=== PATIENT | female | born 1940 | race Caucasian/White ===

== ENCOUNTER 2016-12-17 17:34 | Observation (INO) | payer OTHER ==
--- NOTE | ~2016-12-17 | HP ---
History And Physical [place] [id number] [facility] [place]. [address] NAME: JOAQUIN PFEIFFER : 38 STATUS : ADM Juan PAT#: [id number] AGE: 76 ADM/REG DATE : 12/17/16 MR#: [id number] REPORT SERV DATE: 12/18/16 DICTATED BY: DON SCHAEFER DATE: 12/18/16 REPORT STATUS : Draft TRANSCRIBED BY: MODMai DATE: 12/18/16 DATE OF ADMISSION: 12/17/2016 [facility] TIGER MACHINE OPERATOR: Tg Ingram M.D. CHIEF COMPLAINT: Referred by PCP for AFib with RVR. HISTORY OF PRESENT ILLNESS: This is a very pleasant, 76-year-old, white female who is a patient of Dr. Ingram. 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 She presented to her primary care provider's office yesterday because over the weekend she was pushing a heavy cart at [facility] and developed what she felt was a muscle in her shoulder pulled. She did also note bilateral posterior neck and between the shoulder blades and costochondral areas that were uncomfortable on Saturday. She denied any palpitations or shortness of breath. EKG at the primary care provider's office showed atrial fibrillation with RVR with a heart rate of 150 while there and therefore, they referred her to the emergency department for new onset paroxysmal atrial fibrillation and atypical chest pain. Currently, she is rate controlled on a diltiazem drip, and she denies any shortness of breath, palpitations or chest pain. She feels them up on her shoulder, feels improved at this time. She has no complaints at this time, and has been n.p.o. since midnight. PAST MEDICAL HISTORY: 1. Hyperlipidemia. 2. Noted frequent PVCs with 2000 couplets and 800 bigeminy runs that were asymptomatic on a Holter 04/29/2015. No V-tach. No A-Fib, just four short runs of SVT that were all asymptomatic. 3. Diabetes mellitus type 2. 4. History of Guillain-Carbonado with residual weakness using a rolling walker. PAST SURGICAL HISTORY: Hysterectomy. SOCIAL HISTORY: She is . She denies any tobacco, alcohol or illicit drug use. She does report using a rolling walker outside the home and occasionally in the home along with a cane. She denies any formal exercise program secondary to Guillain-Carbonado. FAMILY HISTORY: Noncontributory. REVIEW OF SYSTEMS: She does not recall having a recent echocardiogram. She denies any shortness of breath, palpitations or chest pain with exertion. As above per HPI, all other systems reviewed and negative. ALLERGIES: CODEINE, REACTION NAUSEA AND VOMITING. TALWIN, REACTION LOSS OF MUSCLE History And Physical [address] [address] NAME: JOAQUIN PFEIFFER : 38 STATUS : ADM Juan PAT#: [id number] AGE: 76 ADM/REG DATE : 12/17/16 MR#: [id number] REPORT SERV DATE: 12/18/16 DICTATED BY: DON SCHAEFER DATE: 12/18/16 REPORT STATUS : Draft TRANSCRIBED BY: JOSE DATE: 12/18/16 USE/WEAKNESS. DECONAMINE, LOSS OF MUSCLE USE/WEAKNESS. HOME MEDICATIONS: List reviewed and is as follows: 1. Elavil 25 mg p.o. at bedtime. 2. Atorvastatin 40 mg p.o. at bedtime. 3. Vitamin D 1000 units p.o. daily. 4. Coenzyme Q10 100 mg p.o. with supper. 5. Gabapentin 300 mg p.o. three times daily. 6. Amaryl 2 mg p.o. three times daily. 7. Glucosamine/D3/Boswellia kayla 1 tablet p.o. daily. 8. Lisinopril 5 mg p.o. with supper. 9. Magnesium oxide 400 mg p.o. daily. 10.Metformin 850 mg p.o. three times daily. 11.[place]-3 fatty acid 2000 mg p.o. with supper. 12.Blue-Emu 1 application topically daily p.r.n. muscle pain. PHYSICAL EXAMINATION: VITAL SIGNS: Oxygen saturation 93% on room air, weight 79.379 kg, temperature 98.3, pulse 82, respiratory rate 18, blood pressure 111/67. GENERAL: Well developed, well nourished. In no apparent distress. HEENT: Head normocephalic. No xanthelasma. Sclera clear, anicteric. Moist mucous membranes without pallor. No lymphadenopathy. No deficits noted. NECK: Trachea midline. Supple. No thyromegaly, JVD, or bruits. RESPIRATORY: Unlabored respirations. Breath sounds clear bilaterally to posterior auscultation, upper lobes with faint crackles bilaterally and at the bases. No wheezes or rhonchi. CARDIOVASCULAR: Irregularly irregular. No murmur, rub, or gallop appreciated. No chest wall tenderness to palpation. ABDOMEN: Soft, nontender, and nondistended. Active bowel sounds auscultated x4 quadrants. No organomegaly and no masses. No aortic bruit. EXTREMITIES: DP/PT and radial pulses 2+ bilaterally. No clubbing, cyanosis, or edema. SKIN: Warm, dry, intact. No rash. Normal turgor. MUSCULOSKELETAL: Moves all extremities in bed without difficulty. NEURO/PSYCH: Alert and oriented x3 with no acute distress. Affect appropriate to current situation. LABORATORY DATA: BMP: Sodium 140, potassium 4, creatinine 0.76, glucose elevated at 197. Subsequent POC checks 205 and 235. Magnesium 1.7, after repletion 1.9. CBC: White blood cell count 8.9, hemoglobin 12.4, hematocrit 37.4, platelets 224. Initial INR 1.2, after initiation of Eliquis 1.9. Troponin less than 0.02 x2. BNP was mildly abnormal at 317.6. TSH normal at 1.080 and free T4 is also normal at 1.29. LFTs were also unremarkable. IMAGING: Chest x-ray, venous congestion with interstitial prominence, most compatible with edema. Small bilateral pleural effusions noted. Also bibasilar atelectasis noted. EKG is personally interpreted. First EKG from primary care provider's office revealed either atrial fibrillation with RVR 150 or A-flutter at 150. Subsequent EKGs performed at [facility] x2 revealed paroxysmal atrial fibrillation that is rate controlled. Telemetry, History And Physical [place] [address] [facility] [place] [place]. [address] NAME: JOAQUIN PFEIFFER : 38 STATUS : ADM Juan PAT#: [id number] AGE: 76 ADM/REG DATE : 12/17/16 MR#: [id number] REPORT SERV DATE: 12/18/16 DICTATED BY: DON SCHAEFER DATE: 12/18/16 REPORT STATUS : Draft TRANSCRIBED BY: MODMai DATE: 12/18/16 atrial fibrillation, rate 80s. This is on a Cardizem drip. ASSESSMENT AND PLAN: 1. New onset paroxysmal atrial fibrillation. She is currently rate controlled on a Cardizem drip, and we will continue that at this time. We will plan a CASSANDRA cardioversion today. Risks and benefits of CASSANDRA cardioversion were discussed with the patient who has been on Eliquis that was initiated in the emergency department. She does wish to proceed at this time. She will be kept n.p.o. for this procedure. Timing of procedure is pending but anticipate it will be performed today. This has been reviewed with rounding breastfeeding educator for AFib Ops Unit, Dr. Emmanuel Roper. Note CHADS2- VASc score is a 5 given hypertension, age, diabetes, and gender. She again has been initiated on Eliquis 5 mg p.o. b.i.d. and this will be continued upon discharge. I will check an echocardiogram to evaluate for any valvular heart disease as she has not recently had an echocardiogram per patient report. Post CASSANDRA cardioversion, she will be discharged to home on Eliquis, and she will follow up with her breastfeeding educator, Dr. Ingrma in three to four weeks. All questions were answered. 2. Hyperlipidemia. We will continue her home statin. 3. Hypertension. This is well controlled on lisinopril and I will continue that medication. 4. Diabetes mellitus 2. She will be continued on sliding scale insulin while here in the hospital, and she will resume p.o. medications upon discharge. She is to follow up with her primary care provider. 5. Fluid volume overload. I suspect that this is in the setting of atrial fibrillation with rapid ventricular rate. She is currently not hypoxic and is on room air at this time with no ankle edema and minimal crackles, bilateral bases. I will provide her 1 more dosage of IV Bumex. Otherwise, she will be sent home without diuretics as again I suspect that this was secondary to the rapid ventricular response. 6. Atypical chest pain. The patient denies this at this present time and denies having atypical chest pain but reports only shoulder pain that she reports is secondary to a pulled muscle pushing a cart over the weekend. She did have 2 negative troponins and EKG did not reveal ischemia. 7. Followup with primary care provider and followup with Dr. Ingram. KL/MODL Don Schaefer NP / [id number] CC: Lauren Elizalde, MSN, CONFIGURATION MANAGEMENT SPECIALIST-BC Tg Ingram M.D. Emmanuel Roper M.D.
--- NOTE | ~2016-12-17 | TEE ---
Transesophageal Echocardiogram [facility] [address] [place]. [address] NAME: JOAQUIN PFEIFFER : 38 STATUS : ADM Juan PAT#: [id number] AGE: 76 ADM/REG DATE : 12/17/16 MR#: [id number] REPORT SERV DATE: 12/18/16 DICTATED BY: LG MYERS DATE: 12/18/16 REPORT STATUS : Draft TRANSCRIBED BY: MODL DATE: 12/18/16 INDICATION: This is a 76-year-old woman with atrial fibrillation. PROCEDURE: After questions were answered and consents were signed, the patient was sedated with propofol per Anesthesia. The probe was placed in the mid esophagus, and images were obtained without difficulty. At the conclusion of the procedure, the probe was withdrawn, and the patient was to awaken in the short-stay unit without difficulty. 2D INTERPRETATION: The left ventricular function is mild to moderately decreased globally. The mitral valve opened adequately. No prolapse was noted. The left atrium was moderately enlarged. There was spontaneous echo contrast noted in the left atrium and with dense contrast in the left atrial appendage with almost sludging type of morphology, there was a concern for clot in the left atrial appendage. The interatrial septum was intact. The right atrium was normal. Tricuspid valve was grossly normal. Right ventricle grossly normal. No significant atherosclerotic plaquing was noted in the descending aorta or the aortic arch. No significant pericardial effusion. COLOR FLOW: Mild to moderate mitral regurgitation with no significant aortic insufficiency and moderate mitral regurgitation. DOPPLER: Doppler flow velocities in the left atrial appendage were less than 40 cm/sec. CONCLUSION: 1. MILD TO MODERATELY DECREASED LEFT VENTRICULAR SYSTOLIC FUNCTION WITH VISUAL ESTIMATION OF LVEF 35%-40%. 2. SIGNIFICANT LEFT ATRIAL ENLARGEMENT WITH SLOW FLOW AND PROBABLE LEFT ATRIAL APPENDAGE THROMBUS. 3. MODERATE MITRAL AND TRICUSPID REGURGITATION. WO/MODL Lg Myers M.D., Ph.D, F.A.C.C. / [id number] CC: Simon Rivera M.D.
[2016-12-17 16:47] LABS: BASOPHILS 0.2 %; BASOPHILS ABSOLUTE 0.02 10/3/uL (0.0-0.16); EOSINOPHILS 0.1 %; EOSINOPHILS ABSOLUTE 0.01 10/3/uL (0.0-0.53); HEMATOCRIT 37.3 % (36.0-48.0); HEMOGLOBIN 12.4 g/dL (12.0-16.0); IMMATURE GRANULOCYTES 0.1 %; IMMATURE GRANULOCYTES ABSOLUTE 0.01 10/3/uL (0.0-0.11); LYMPHOCYTES 14.5 %; LYMPHOCYTES ABSOLUTE 1.29 10/3/uL (0.67-4.30); MEAN CORPUS HGB CONC 33.2 g/dL (32.0-36.0); MEAN CORPUSCULAR HEMOGLOB 30.7 pg (26.0-34.0); MEAN CORPUSCULAR VOLUME 92.3 fL (80-100); MEAN PLATELET VOLUME 9.6 fL (9.2-13.0); MONOCYTES 14.7 %; MONOCYTES ABSOLUTE 1.31 10/3/uL (0.21-1.20); NEUTROPHILS 70.4 %; NEUTROPHILS ABSOLUTE 6.27 10/3/uL (2.02-8.40); PLATELET COUNT 224 10/3/uL (150-400); RBC DISTRIBUTION WIDTH 14.9 % (12.0-16.0); RED CELL COUNT 4.04 10/6/uL (4.0-5.6); WHITE BLOOD CELLS 8.9 10/3/uL (4.5-10.5)
[2016-12-17 16:50] LABS: MANUAL DIFF NO %
[2016-12-17 16:56] LABS: INTERNATIONAL NORMAL RATI 1.2 UNITS (-); PARTIAL THROMBO TIME 29.3 SEC (22.5-37.2); PROTIME (NOT ORD) 15.4 SEC (12.0-14.5)
[2016-12-17 17:02] LABS: CALCIUM, SERUM 9.3 MG/DL (8.5-10.4); CHEST PAIN PROFILE TAT 0 Hrs 21 Mins; CHLORIDE, SERUM 109 MMOL/L (96-112); CO2 (CARBON DIOXIDE) 25 MMOL/L (24-34); CREATININE 0.76 MG/DL (0.55-1.02); GFR AFRICAN AMERICAN 87 ML/MIN (>=60); GFR NON AFRICAN AMERICAN 75 ML/MIN (>=60); GLUCOSE, SERUM 197 MG/DL (60-99); SODIUM, SERUM 140 MMOL/L (135-148); TROPONIN I <0.02 NG/ML (<0.05)
[2016-12-17 17:03] LABS: BUN (BLOOD UREA NITROGEN) 15 MG/DL (6-23)
[2016-12-17] MEDS ORDERED: MAGOX4 PO (18:49)
[2016-12-17] MEDS ORDERED: LIPITOR40 PO (18:49)
[2016-12-17] MEDS ORDERED: AMARYL2 PO (18:49)
[2016-12-17] MEDS ORDERED: BLU EMU TOP (18:50)
[2016-12-17] MEDS ORDERED: AMIT25 PO (18:50)
[2016-12-17] MEDS ORDERED: GLUCPH8 PO (18:50)
[2016-12-17] MEDS ORDERED: NEUR300 PO (18:51)
[2016-12-17] MEDS ORDERED: CO Q-10100 MG PO (18:51)
[2016-12-17] MEDS ORDERED: FISH-EPA1000 MG PO (18:51)
[2016-12-17] MEDS ORDERED: PRIN5 PO (18:51)
[2016-12-17] MEDS ORDERED: VITAMIN D1000 UNI1 PO (18:52)
[2016-12-17] MEDS ORDERED: OSTEO BI-FLEX1 EACH PO (18:52)
[2016-12-17 20:11] LABS: ALBUMIN 3.6 G/DL (3.5-5.0); ALKALINE PHOSPHATASE 72 U/L (45-117); DIRECT BILIRUBIN 0.2 MG/DL (0.0-0.4); FREE T4 1.29 NG/DL (0.76-1.46); INDIRECT BILIRUBIN(NOT ORDER) 0.6 MG/DL (0.1-0.9); SGOT(AST) 17 U/L (5-40); SGPT(ALT) 19 U/L (5-65); TOTAL BILIRUBIN 0.8 MG/DL (0-1.2); TOTAL PROTEIN 7.5 G/DL (6.0-8.5)
[2016-12-18 05:40] LABS: INTERNATIONAL NORMAL RATI 1.9 UNITS (-); PARTIAL THROMBO TIME 41.1 SEC (22.5-37.2)
[2016-12-18 05:43] LABS: PROTIME (NOT ORD) 21.8 SEC (12.0-14.5)
[2016-12-18 10:30] LABS: BUN (BLOOD UREA NITROGEN) 19 MG/DL (6-23); CALCIUM, SERUM 9.1 MG/DL (8.5-10.4); CHLORIDE, SERUM 108 MMOL/L (96-112); CO2 (CARBON DIOXIDE) 26 MMOL/L (24-34); CREATININE 0.76 MG/DL (0.55-1.02); GFR AFRICAN AMERICAN 87 ML/MIN (>=60); GFR NON AFRICAN AMERICAN 75 ML/MIN (>=60); GLUCOSE, SERUM 184 MG/DL (60-99); POTASSIUM, SERUM 4.2 MMOL/L (3.5-5.3); SODIUM, SERUM 140 MMOL/L (135-148)
[2016-12-18 11:21] LABS: HEMATOCRIT 37.3 % (36.0-48.0); HEMOGLOBIN 12.7 g/dL (12.0-16.0); MEAN CORPUSCULAR HEMOGLOB 31.1 pg (26.0-34.0); MEAN CORPUSCULAR VOLUME 91.4 fL (80-100); MEAN PLATELET VOLUME 10.1 fL (9.2-13.0); PLATELET COUNT 212 10/3/uL (150-400); RBC DISTRIBUTION WIDTH 14.7 % (12.0-16.0); RED CELL COUNT 4.08 10/6/uL (4.0-5.6); WHITE BLOOD CELLS 10.5 10/3/uL (4.5-10.5)
[2016-12-18 11:40] LABS: MANUAL DIFF YES %
[2016-12-18 11:41] LABS: EOSINOPHILS 1 %; EOSINOPHILS ABSOLUTE (CALC) 0.11 10/3/uL (0.0-0.53); LYMPHOCYTES 22 %; LYMPHOCYTES ABSOLUTE (CALC) 2.31 10/3/uL (0.67-4.30); MONOCYTES 12 %; MONOCYTES ABSOLUTE (CALC) 1.26 10/3/uL (0.21-1.20); NEUTROPHILS ABSOLUTE (CALC) 6.83 10/3/uL (2.02-8.40); PLATELET ESTIMATE ADQ (ADEQUATE); RBC MORPHOLOGY NORM (NORMAL); SEGMENTED NEUTROPHIL (0) 65 %; TOTAL NUCLEATED CELLS 100
[2016-12-19 05:56] LABS: BUN (BLOOD UREA NITROGEN) 21 MG/DL (6-23); CHLORIDE, SERUM 108 MMOL/L (96-112); CO2 (CARBON DIOXIDE) 24 MMOL/L (24-34); CREATININE 0.74 MG/DL (0.55-1.02); GFR AFRICAN AMERICAN 90 ML/MIN (>=60); GFR NON AFRICAN AMERICAN 78 ML/MIN (>=60); GLUCOSE, SERUM 182 MG/DL (60-99); POTASSIUM, SERUM 4.6 MMOL/L (3.5-5.3); SODIUM, SERUM 141 MMOL/L (135-148)
[2016-12-19] MEDS ORDERED: XARELTO20 MG PO (09:36)
[2016-12-19] MEDS ORDERED: L20 PO (09:37)
[2016-12-19] MEDS ORDERED: KLOR-CON M2020 MEQ PO (09:38)
[2016-12-19] MEDS ORDERED: COREG12 PO (09:38)
[2016-12-19] MEDS ORDERED: CARDCD180 PO (09:38)
== END 2016-12-19 10:25 | disposition home or self-care (01) ==
LOC: ER 17:34 → CDU1 19:04 → CDU2 19:25
PROVIDERS: Clinical Nurse Specialist; Emergency Medicine; Internal Medicine Cardiovascular Disease
DX: I48.0 Paroxysmal atrial fibrillation (principal); I49.3 Ventricular premature depolarization; R00.0 Tachycardia, unspecified; R07.89 Other chest pain; J06.9 Acute upper respiratory infection, unspecified; E11.9 Type 2 diabetes mellitus without complications; J32.9 Chronic sinusitis, unspecified; E83.42 Hypomagnesemia; I10 Essential (primary) hypertension; E78.5 Hyperlipidemia, unspecified; E87.70 Fluid overload, unspecified; G62.9 Polyneuropathy, unspecified; E78.00 Pure hypercholesterolemia, unspecified; E28.39 Other primary ovarian failure; F41.9 Anxiety disorder, unspecified; Z90.49 Acquired absence of other specified parts of digestive tract; Z86.69 Personal history of other diseases of the nervous system and sense organs; Z90.89 Acquired absence of other organs; Z88.1 Allergy status to other antibiotic agents; Z88.6 Allergy status to analgesic agent; Z90.710 Acquired absence of both cervix and uterus; J04.0 Acute laryngitis
CPT/HCPCS: 71010; 80048; 80076; 82962; 83735; 83880; 84439; 84443; 84484; 85025; 85610; 85730; 93005; 93306; 93312; 93320; 93325; 96365; 96366; 96368; 96375; 96376; 99285; A9270-GY; G0378; J2800

== ENCOUNTER 2016-12-21 22:00 | Observation (INO) | payer OTHER ==
--- NOTE | ~2016-12-21 | CN ---
Consultation Report [place] [address] [place]. [address] NAME: JOAQUIN PFEIFFER : 38 STATUS : ADM IN PAT#: [id number] AGE: 76 ADM/REG DATE : 12/21/16 MR#: [id number] REPORT SERV DATE: 12/22/16 DICTATED BY: GINA DELEON DATE: 12/22/16 REPORT STATUS : Draft TRANSCRIBED BY: JOSE DATE: 12/22/16 CONSULTATION DATE OF CONSULTATION: 12/22/2016 LOCATION: [facility] I am asked to see this lady with GI bleeding. HISTORY OF PRESENT ILLNESS: This 76-year-old lady has a history of atrial fibrillation. She has apparently undergone a recent cardiac procedure and was placed on Xarelto. Several days afterwards she noted three bowel movements, which she describes as purplish and black. She denied lightheadedness, upper abdominal pain, nausea or vomiting. She denied any palpitations. She has no known GI tract disease, and has never had endoscopy in the past. PAST MEDICAL HISTORY: Remarkable for Guillain-Harris syndrome, which has resulted in some nerve damage. LIST OF MEDICATIONS: Include Elavil, Lipitor, Cardizem, and Lasix. GENERAL REVIEW OF SYSTEMS: Currently negative. PHYSICAL EXAMINATION: CHEST: Clear. CARDIAC: Regular rhythm without rubs or murmurs. ABDOMEN: Soft and nontender. Bowel sounds normal. No palpable mass. LABORATORY DATA: Lab work has shown hemoglobin of 11.8 with normal platelet count. BUN and creatinine are normal. IMPRESSION: Gastrointestinal bleeding, question upper versus lower, in a person on anticoagulants. PLAN: Proceed with panendoscopy and colonoscopy in the next 24 hours. CLEMENTINA/JOSE Gina Deleon M.D. Consultation Report [place] [address] [place]. [address] NAME: JOAQUIN PFEIFFER : 38 STATUS : ADM IN PAT#: [id number] AGE: 76 ADM/REG DATE : 12/21/16 MR#: [id number] REPORT SERV DATE: 12/22/16 DICTATED BY: GINA DELEON DATE: 12/22/16 REPORT STATUS : Draft TRANSCRIBED BY: JOSE DATE: 12/22/16 / [id number] CC: MD Eulalio Barahona M.D.
--- NOTE | ~2016-12-21 | EGD ---
EGD REPORT [facility] [address] [address] NAME: VICKI PFEIFFER : 38 STATUS : ADM IN PAT#: [id number] AGE: 76 ADM/REG DATE : 12/21/16 MR#: [id number] REPORT SERV DATE: 12/23/16 DICTATED BY: GINA DELEON DATE: 12/23/16 REPORT STATUS : Draft TRANSCRIBED BY: [facility] DATE: 12/23/16 Endoscopy Center Patient Name: Vicki Pfeiffer Date of : 1940 Attending MD: GINA DELEON MD Procedure Date No Time: 12/23/2016 Procedure: Colonoscopy Indications: Melena Referring MD: CHARITO MATTHEW Medicines: Propofol per Anesthesia Complications: No immediate complications. Procedure: Pre-Anesthesia Assessment: - ASA Grade Assessment: III - A patient with severe systemic disease. After I obtained informed consent, the scope was passed under direct vision. Throughout the procedure, the patient's blood pressure, pulse, and oxygen saturations were monitored continuously. The CF [id number] was introduced through the anus and advanced to the cecum, identified by appendiceal orifice and ileocecal valve. The colonoscopy was performed without difficulty. The patient tolerated the procedure well. The quality of the bowel preparation was good. Findings: Multiple small-mouthed diverticula were found in the entire colon. The exam was otherwise without abnormality on direct and retroflexion views. Impression: - Diverticulosis in the entire examined colon. - The examination was otherwise normal on direct and retroflexion views. Procedure Code(s): --- Professional --- 89540, Colonoscopy, flexible, proximal to splenic flexure; diagnostic, with or without collection of specimen(s) by brushing or washing, with or without colon decompression (separate procedure) Diagnosis Code(s): --- Professional --- K57.30, Diverticulosis of large intestine without perforation or abscess without bleeding K92.1, Melena EGD REPORT [facility] [address] [place] [address] NAME: VICKI PFEIFFER : 38 STATUS : [facility]M [facility]#: [id number] AGE: 76 ADM/REG DATE : 12/21/16 MR#: [id number] REPORT SERV DATE: 12/23/16 DICTATED BY: GINA DELEON. DATE: 12/23/16 REPORT STATUS : Draft TRANSCRIBED BY: [employer] [facility]AP[facility] DATE: 12/23/16 CPT copyright 2013 [employer]. All rights reserved. The codes documented in this report are preliminary and upon residence leasing agent review may be revised to meet current compliance requirements. GINA DELEON MD 12/23/2016 12:15 PM This report has been signed electronically. Number of Addenda: 0 Note Initiated On: 12/23/2016 11:44 AM Scope Withdrawal Time 0 hours 3 minutes 14 seconds [address] [address]
--- NOTE | ~2016-12-21 | CN ---
Consultation Report [facility] [address] [place]. [address] NAME: JOAQUIN PFEIFFER : 38 STATUS : ADM IN PAT#: [id number] AGE: 76 ADM/REG DATE : 12/21/16 MR#: [id number] REPORT SERV DATE: 12/22/16 DICTATED BY: LUIS MANUEL HOLMAN DATE: 12/22/16 REPORT STATUS : Draft TRANSCRIBED BY: MODL DATE: 12/22/16 CARDIOLOGY CONSULT DATE OF CONSULTATION: 12/22/2016 REASON FOR CONSULTATION: Atrial fibrillation. HISTORY OF PRESENT ILLNESS: Ms. Pfeiffer is a very pleasant, 76-year-old female, known to our service and followed by my partner, Dr. Tomi Ingram, whom we have been asked to see by the Hospitalist Service for management of atrial fibrillation in the context of GI bleed. The patient was recently admitted to the hospital and underwent a CASSANDRA after being diagnosed with atrial fibrillation. Her CASSANDRA was notable for LV dysfunction with an EF of 35% and suspected thrombus in the left atrial appendage and thus cardioversion was not performed, instead she has been managed with a rate control strategy with Coreg and diltiazem and anticoagulation with Xarelto. Shortly after being discharged, she experienced an episode of maroon stools. She consulted with her primary care physician and was advised to go to the local ER. Her hemoglobin has been stable between 11 and 12, slightly lower than her pre- Xarelto level of 12.7 upon discharge. She has had no recurrent episode of bloody bowel movements, but has not had much to eat since her first episode. She has already been seen by GI and there is a tentative plan for endoscopy both EGD and colonoscopy tomorrow. She has no history of endoscopy. She denies any palpitations currently, but was feeling them prior to admission. She had some confusion about which medication she was supposed to be taking and was not taking Coreg. Currently, her heart rate is well controlled in the 60s. She has no chest pain. She has no other complaints at this time. PAST MEDICAL HISTORY: 1. Paroxysmal atrial fibrillation. 2. Cardiomyopathy. 3. Heart failure with reduced ejection fraction. 4. Valvular heart disease with moderate MR/TR on recent echo. 5. Chronic anticoagulation with Xarelto. 6. Hypertension. 7. Hyperlipidemia. 8. Diabetes. MEDICATIONS: Home medications include Elavil, Lipitor, Coreg 12.5 q.12, Cardizem 180 daily, Lasix 20 daily, Neurontin, Amaryl, Prinivil, Glucophage, Mag-Ox, fish oil, potassium chloride, Xarelto 20 daily. ALLERGIES: CODEINE, NAUSEA AND VOMITING; TALWIN, MUSCLE WEAKNESS. Consultation Report [place] [address] [place]. [address] NAME: JOAQUIN PFEIFFER : 38 STATUS : ADM IN PAT#: [id number] AGE: 76 ADM/REG DATE : 12/21/16 MR#: [id number] REPORT SERV DATE: 12/22/16 DICTATED BY: LUIS MANUEL HOLMAN DATE: 12/22/16 REPORT STATUS : Draft TRANSCRIBED BY: JOSE DATE: 12/22/16 FAMILY HISTORY: Noncontributory. SOCIAL HISTORY: The patient is and lives with her in [facility]. There is no tobacco, alcohol, or illicits in her history. REVIEW OF SYSTEMS: Per HPI. Otherwise, negative. PHYSICAL EXAMINATION: VITAL SIGNS: Temperature 97.5, pulse 80, blood pressure 120/58, respiratory rate 16. GENERAL: Appears comfortable. HEENT: Sclerae anicteric; mucous membranes moist. NECK: No JVD. Thyroid not tender or enlarged. CARDIOVASCULAR: Irregular S1 and S2. Soft systolic murmur appreciated at apex. PULMONARY: Lung marcelino CTA. ABDOMEN: Soft, nontender, no masses. EXTREMITIES: Warm, no edema. NEUROLOGIC: Grossly without deficits. LABORATORY DATA: Reviewed. Potassium is 4.0, creatinine 0.72. Hemoglobin 11.8, platelets 254. EKG from 12/21/2016, time 20:12, underlying rhythm is atrial fibrillation, ventricular rate approximately 128. Nonspecific ST-segment abnormality. Telemetry demonstrates atrial fibrillation with heart rate approaching 160 at its highest, currently in the 80s. Prior CASSANDRA reviewed. IMPRESSIONS/RECOMMENDATIONS: 1. Gastrointestinal bleed. 2. Atrial fibrillation. Currently rate controlled. 3. Cardiomyopathy, heart failure with reduced ejection fraction, chronic. 4. Chronic anticoagulation with warfarin. 5. Mild anemia. I agree with holding anticoagulation. I am aware of that GI has seen the patient and they have planned for endoscopy tomorrow. I am hopeful that findings do not preclude the use of oral anticoagulation which is strongly indicated in this patient with atrial fibrillation and demonstrated left atrial appendage thrombus which puts her at high risk of stroke or other thromboembolic event. We will need to assess the risk and benefit ratio of long-term anticoagulation based on the results. Regarding atrial fibrillation, she is currently rate controlled. Although there are episodes of high heart rate documented. We will add IV metoprolol p.r.n. for her regimen. We will follow patient with you. Thank you for the consultation. Consultation Report [address] [place]. [address] NAME: JOAQUIN PFEIFFER : 38 STATUS : ADM IN PAT#: [id number] AGE: 76 ADM/REG DATE : 12/21/16 MR#: [id number] REPORT SERV DATE: 12/22/16 DICTATED BY: LUIS MANUEL HOLMAN DATE: 12/22/16 REPORT STATUS : Draft TRANSCRIBED BY: JOSE DATE: 12/22/16 GAUTAM/JOSE Luis Manuel Holman MD / [id number] CC: MD Eulalio Barahona M.D.
--- NOTE | ~2016-12-21 | DS ---
Discharge Summary [place] [id number] [place]. [address] NAME: JOAQUIN PFEIFFER : 38 STATUS : DIS IN PAT#: [id number] AGE: 76 ADM/REG DATE : 12/21/16 MR#: [id number] REPORT SERV DATE: 12/24/16 DICTATED BY: ROJELIO HOFFMAN DATE: 12/23/16 REPORT STATUS : Draft TRANSCRIBED BY: JOSE DATE: 12/23/16 ADMISSION DATE: 12/21/2016 DISCHARGE DATE: 12/23/2016 PROCEDURES DONE: 1. 12/21/2016 chest x-ray: Improving bibasilar aeration with small bilateral pleural effusion. 2. 12/22/2016 colonoscopy report: Impression, diverticulosis in the entire examined colon. The examination was otherwise normal on direct and retroflexion views. Findings: Multiple small mouthed diverticula were found in the entire colon. 3. 12/22/2016 upper GI endoscopy. Findings: Patchy minimal inflammation characterized by erythema was found in the gastric antrum. Impression: Acute gastritis. CONSULTS: Dr. Obregon for GI and Dr. Holman For Cardiology. REASON FOR ADMISSION: Hematochezia. HISTORY OF HOSPITAL STAY: A 76-year-old white female with past medical history of AFib; CHF, EF of 35% to 40% with left atrial appendage thrombus, on Xarelto; hypertension; diabetes type 2; hyperlipidemia, presenting with hematochezia. The patient was admitted for further evaluation of hematochezia since the patient had multiple episodes. The patient was then seen by GI. The patient was started on Protonix drip in q.6h. H and H check. The patient's hemoglobin was stable, not requiring any blood transfusion. However, the patient's anticoagulation was put on hold secondary to hematochezia. Cardiology felt the patient can restart her Xarelto since the patient's bleed could be from a diverticulosis. In addition, the patient underwent colonoscopy, which shows multiple diverticulitis throughout the entire colon. GI felt the patient has a resolved diverticular bleed and okay for discharge with a followup. DISPOSITION: The patient is feeling fine, no complaint. ACTIVITY: As tolerated. DIET: Diabetic. INSTRUCTIONS UPON DISCHARGE: 1. The patient is to follow up with Cardiology within two to three weeks. 2. The patient is to follow up with GI within two weeks. 3. The patient is to follow up with primary care within two weeks. MEDICATION UPON DISCHARGE: 1. Diltiazem 180 mg p.o. b.i.d., dispensed 60. 2. Elavil 25 mg p.o. q.h.s. 3. Lipitor 40 mg p.o. q.h.s. 4. Coreg 12.5 mg p.o. b.i.d. 5. Vitamin D 1000 units p.o. daily. Discharge Summary [address] [address] NAME: JOAQUIN PFEIFFER : 38 STATUS : DIS IN PAT#: [id number] AGE: 76 ADM/REG DATE : 12/21/16 MR#: [id number] REPORT SERV DATE: 12/24/16 DICTATED BY: ROJELIO HOFFMAN DATE: 12/23/16 REPORT STATUS : Draft TRANSCRIBED BY: JOSE DATE: 12/23/16 6. Coenzyme Q 100 mg p.o. daily. 7. Gabapentin 300 mg p.o. t.i.d. 8. Prinivil 5 mg p.o. q.h.s. 9. Magnesium oxide 400 mg p.o. daily. 10.Dillon-3 2000 mg p.o. daily. 11.Xarelto 20 mg p.o. daily. 12.Amaryl 2 mg p.o. three times a day. 13.Glucophage 850 mg p.o. t.i.d. 14.Osteo Bi-Flex one tablet p.o. daily. 15.Lasix 20 mg p.o. daily. 16.Potassium 20 mEq p.o. daily. DIAGNOSES UPON DISCHARGE: 1. Melanotic stools secondary to diverticular bleed. 2. Atrial fibrillation, on Xarelto. 3. Left atrial appendage thrombus, on Xarelto. 4. Congestive heart failure with ejection fraction of 35% to 40%. 5. Hypertension. 6. Hyperlipidemia. 7. Diabetes type 2. MARTHA/JOSE Rojelio Hoffman MD / [id number] CC: MD Eulalio Barahona M.D.
--- NOTE | ~2016-12-21 | HP ---
History And Physical [id number] [place]. [address] NAME: JOAQUIN PFEIFFER : 38 STATUS : ADM IN [facility]#: [id number] AGE: 76 ADM/REG DATE : 12/21/16 MR#: [id number] REPORT SERV DATE: 12/22/16 DICTATED BY: RADHA SEAY DATE: 12/21/16 REPORT STATUS : Draft TRANSCRIBED BY: MODL DATE: 12/21/16 DATE OF ADMISSION: 12/21/2016 POINT OF ENTRY: Transfer from [facility] Emergency Department. PRIMARY CARE PHYSICIAN: Eulalio Will M.D. PRIMARY COTTON OPENER: Tg Ingram M.D. CHIEF COMPLAINT: Hematochezia. HISTORY OF PRESENT ILLNESS: Ms. Pfeiffer is a 76-year-old female with recent diagnosis of atrial fibrillation as well as chronic systolic congestive heart failure, ejection fraction of 35% to 40% with concern for possible left atrial appendage thrombus, currently on Xarelto who presented to [facility] Emergency Department earlier today with report of a one-day history of multiple marooned-colored stools. The patient was admitted to [facility] earlier this week for atrial fibrillation with RVR. She was found to have reduced ejection fraction of 35% to 40% as well as moderate mitral and tricuspid regurgitation with some concern for left atrial appendage thrombus. She underwent cardioversion, it is unclear if she stayed in normal sinus rhythm prior to discharge and was started on Xarelto. The patient states that beginning today she started to have multiple episodes of maroon- colored stools. She denies any associated nausea or vomiting or abdominal pain. She denies any prior history of GI bleeds, has never had an EGD or colonoscopy, does not have a previous relationship with a GI physician here in town. The patient does state that she did not fill her oral diltiazem as she was concerned that it would interact with her lisinopril. She, otherwise, denies any fevers, night sweats, chills, chest pain, palpitations, shortness of breath, abdominal pain, nausea, vomiting, diarrhea, constipation, hemoptysis or dysuria. REVIEW OF SYSTEMS: Comprehensive review of systems otherwise negative unless listed in the history of present illness. Initial evaluation at [facility] Emergency Department is notable for hemoglobin of 12.2 and hematocrit of 37.2. EKG showed AFib with RVR with heart rate at that time of 128. She was given some IV fluids and Protonix and transferred to [facility]. PREVIOUS MEDICAL HISTORY: 1. Atrial fibrillation, on Xarelto. 2. Concern for left atrial appendage thrombus. 3. Chronic systolic congestive heart failure, ejection fraction of 35% to 40%. 4. Hypertension. History And Physical [address] [address] NAME: JOAQUIN PFEIFFER : 38 STATUS : ADM IN PAT#: [id number] AGE: 76 ADM/REG DATE : 12/21/16 MR#: [id number] REPORT SERV DATE: 12/22/16 DICTATED BY: RADHA SEAY DATE: 12/21/16 REPORT STATUS : Draft TRANSCRIBED BY: JOSE DATE: 12/21/16 5. Hyperlipidemia. 6. Iow-rcxspjw-apfugvmat diabetes mellitus type 2. 7. Moderate mitral and tricuspid regurgitation. 8. Guillain-barre. PAST SURGICAL HISTORY: 1. Tonsillectomy. 2. Appendectomy. 3. Anal fissure repair. ALLERGIES: TO CODEINE AND TALWIN. HOME MEDICATIONS: Pending at the time of dictation. SOCIAL HISTORY: Denies any tobacco, alcohol, or illicits. FAMILY MEDICAL HISTORY: Noncontributory. LABS AND IMAGING: All obtained from transfer records from [facility]: 1. White count 5.0, hemoglobin is 12.2, hematocrit is 37.2, and platelets 291. INR 1.7. 2. I-STAT sodium is 139, potassium 4.2, glucose is 216, protein 7.0, albumin 3.7, bilirubin is 0.4, ALT is 18, AST 15, and alkaline phosphatase is 62. 3. EKG per my review shows atrial fibrillation with RVR, heart rate of 128. No evidence of any acute ischemia or infarction. PHYSICAL EXAMINATION: VITAL SIGNS: Temperature is 97.8 degrees Fahrenheit, pulse is irregular and ranging between 100 to 130 on our monitor, currently saturating 97% on 2 liters of cannula, and blood pressure 132/92. GENERAL: The patient is awake, alert, in no acute distress, and resting comfortably in bed. She is a well-developed, well-nourished, elderly female. HEENT: Atraumatic and normocephalic. Moist mucous membranes. Pupils are equal, round, reactive to light and accommodation. Extraocular eye movements are intact. No scleral icterus. NECK: No jugular venous distention. No carotid bruits. CARDIAC: Irregularly irregular rate and rhythm. No murmurs, rubs, or gallops. LUNGS: Clear to auscultation bilaterally. No wheezes, rhonchi, or crackles. ABDOMEN: Soft, nontender, and nondistended. Good bowel sounds. No rebound, guarding, or rigidity. EXTREMITIES: Warm and well perfused. No cyanosis, clubbing, or edema. SKIN: Warm and dry. PSYCH: Affect appropriate. NEURO: Alert and oriented x3. Cranial nerves II through XII are grossly intact. Speech is normal. Gait not assessed. ASSESSMENT AND PLAN: Ms. Pfeiffer is a 76-year-old female with history of atrial fibrillation, on Xarelto, who presents with a one-day history of multiple episodes of hematochezia. History And Physical [address] [address] NAME: JOAQUIN PFEIFFER : 38 STATUS : ADM IN [facility]#: [id number] AGE: 76 ADM/REG DATE : 12/21/16 MR#: [id number] REPORT SERV DATE: 12/22/16 DICTATED BY: RADHA SEAY DATE: 12/21/16 REPORT STATUS : Draft TRANSCRIBED BY: JOSE DATE: 12/21/16 PROBLEM LIST: 1. Hematochezia concerning for likely lower GI bleed. 2. Atrial fibrillation with RVR. 3. Chronic systolic congestive heart failure with ejection fraction of 35% to 40%. 4. Possible left atrial appendage thrombus. 5. Zcx-bvkaeeo-wbuntchwi diabetes mellitus type 2. PLAN: 1. Hematochezia. We will hold the patient's Xarelto. Place her on Protonix IV b.i.d. We will check q.6 hours hemoglobin and hematocrits for the first 24 hours. We will consult Gastroenterology for assistance and make the patient nothing by mouth after midnight in the event she may need endoscopic evaluation tomorrow. 2. Atrial fibrillation with RVR. This appears to be due to the fact that she did not fill her Cardizem after discharge as she was concerned that it would interact with her lisinopril and drop her blood pressure. We will place the patient on diltiazem infusion overnight. Consult Cardiology for assistance. 3. Chronic systolic congestive heart failure. The patient currently appears euvolemic at this time. Checking a chest x-ray. Continue her home medications once confirmed. 4. Concern for left atrial appendage thrombus. We will hold her Xarelto at this time given reports of active bleeding. We will again consult Cardiology for assistance with management of anticoagulation in the setting of GI bleed. 5. DVT prophylaxis. TEDs and SCDs given bleeding. 6. Code status. The patient wished to be full code. JCB/MODL Radha Seay MD / [id number] CC: MD Eulalio Barahona M.D. C. Samuel Ledford, M.D.
--- NOTE | ~2016-12-21 | EGD ---
EGD REPORT [facility] [address] [address] NAME: VICKI PFEIFFER : 38 STATUS : ADM IN PAT#: [id number] AGE: 76 ADM/REG DATE : 12/21/16 MR#: [id number] REPORT SERV DATE: 12/23/16 DICTATED BY: GINA DELEON DATE: 12/23/16 REPORT STATUS : Draft [facility]: [facility] DATE: 12/23/16 Endoscopy Center Patient Name: Vicki Pfeiffer Date of : 1940 Attending MD: GINA DELEON MD Procedure Date No Time: 12/23/2016 Procedure: Upper GI endoscopy Indications: Melena Referring MD: CHARITO MATTHEW Medicines: Propofol per Anesthesia Complications: No immediate complications. Procedure: Pre-Anesthesia Assessment: - ASA Grade Assessment: III - A patient with severe systemic disease. After obtaining informed consent, the endoscope was passed under direct vision. Throughout the procedure, the patient's blood pressure, pulse, and oxygen saturations were monitored continuously. The GIF [id number] was introduced through the mouth, and advanced to the third part of duodenum. The upper GI endoscopy was accomplished without difficulty. The patient tolerated the procedure well. Findings: Patchy minimal inflammation characterized by erythema was found in the gastric antrum. The exam was otherwise without abnormality. Impression: - Acute gastritis. - The examination was otherwise normal. Procedure Code(s): --- Professional --- 08387, Esophagogastroduodenoscopy, flexible, transoral; diagnostic, including collection of specimen(s) by brushing or washing, when performed (separate procedure) Diagnosis Code(s): --- Professional --- K29.00, Acute gastritis without bleeding K92.1, Melena CPT copyright 2013 [employer] [place] [employer]. All rights reserved. The codes documented in this report are preliminary and upon sld inclusion teacher review may be revised to meet current compliance requirements. EGD REPORT [facility] [address] [place]. [address] NAME: VICKI PFEIFFER : 38 STATUS : ADM IN [facility]#: [id number] AGE: 76 ADM/REG DATE : 12/21/16 MR#: [id number] REPORT SERV DATE: 12/23/16 DICTATED BY: GINA DELEON. DATE: 12/23/16 REPORT STATUS : Draft TRANSCRIBED BY: [employer] DATE: 12/23/16 GINA DELEON MD 12/23/2016 12:17 PM This report has been signed electronically. Number of Addenda: 0 Note Initiated On: 12/23/2016 11:53 AM Scope Withdrawal Time 0 hours 0 minutes 0 seconds [address] [place] [id number]
[~2016-12-21 22:00] MED LIST: AMARYL2 PO; AMIT25 PO; BLU EMU TOP; CARDCD180 PO; CO Q-10100 MG PO; COREG12 PO; FISH-EPA1000 MG PO; GLUCPH8 PO; KLOR-CON M2020 MEQ PO; L20 PO; LIPITOR40 PO; MAGOX4 PO; NEUR300 PO; OSTEO BI-FLEX1 EACH PO; PRIN5 PO; VITAMIN D1000 UNI1 PO; XARELTO20 MG PO
[2016-12-22 00:56] LABS: HEMATOCRIT 34.1 % (36.0-48.0); HEMOGLOBIN 11.4 g/dL (12.0-16.0)
[2016-12-22 06:26] LABS: BASOPHILS 0.2 %; BASOPHILS ABSOLUTE 0.01 10/3/uL (0.0-0.16); EOSINOPHILS 2.9 %; EOSINOPHILS ABSOLUTE 0.13 10/3/uL (0.0-0.53); HEMATOCRIT 35.4 % (36.0-48.0); HEMOGLOBIN 11.8 g/dL (12.0-16.0); IMMATURE GRANULOCYTES 0.2 %; IMMATURE GRANULOCYTES ABSOLUTE 0.01 10/3/uL (0.0-0.11); LYMPHOCYTES 34.2 %; LYMPHOCYTES ABSOLUTE 1.52 10/3/uL (0.67-4.30); MANUAL DIFF NO %; MEAN CORPUS HGB CONC 33.3 g/dL (32.0-36.0); MEAN CORPUSCULAR HEMOGLOB 30.6 pg (26.0-34.0); MEAN CORPUSCULAR VOLUME 91.9 fL (80-100); MEAN PLATELET VOLUME 9.1 fL (9.2-13.0); MONOCYTES 8.1 %; MONOCYTES ABSOLUTE 0.36 10/3/uL (0.21-1.20); NEUTROPHILS 54.4 %; NEUTROPHILS ABSOLUTE 2.41 10/3/uL (2.02-8.40); PLATELET COUNT 254 10/3/uL (150-400); RBC DISTRIBUTION WIDTH 14.3 % (12.0-16.0); RED CELL COUNT 3.85 10/6/uL (4.0-5.6); WHITE BLOOD CELLS 4.4 10/3/uL (4.5-10.5)
[2016-12-22 06:29] LABS: BUN (BLOOD UREA NITROGEN) 18 MG/DL (6-23); CHLORIDE, SERUM 111 MMOL/L (96-112); CO2 (CARBON DIOXIDE) 26 MMOL/L (24-34); CREATININE 0.72 MG/DL (0.55-1.02); GFR AFRICAN AMERICAN 93 ML/MIN (>=60); GFR NON AFRICAN AMERICAN 80 ML/MIN (>=60); GLUCOSE, SERUM 173 MG/DL (60-99); SODIUM, SERUM 144 MMOL/L (135-148)
[2016-12-22 11:36] LABS: HEMATOCRIT 33.7 % (36.0-48.0); HEMOGLOBIN 11.2 g/dL (12.0-16.0)
[2016-12-22 19:03] LABS: HEMATOCRIT 36.6 % (36.0-48.0)
[2016-12-23 06:19] LABS: BASOPHILS 0.9 %; BASOPHILS ABSOLUTE 0.03 10/3/uL (0.0-0.16); EOSINOPHILS 2.9 %; HEMATOCRIT 34.5 % (36.0-48.0); HEMOGLOBIN 11.5 g/dL (12.0-16.0); IMMATURE GRANULOCYTES 0.3 %; IMMATURE GRANULOCYTES ABSOLUTE 0.01 10/3/uL (0.0-0.11); LYMPHOCYTES 41.2 %; LYMPHOCYTES ABSOLUTE 1.42 10/3/uL (0.67-4.30); MEAN CORPUS HGB CONC 33.3 g/dL (32.0-36.0); MEAN CORPUSCULAR HEMOGLOB 30.7 pg (26.0-34.0); MEAN PLATELET VOLUME 8.8 fL (9.2-13.0); MONOCYTES 10.7 %; MONOCYTES ABSOLUTE 0.37 10/3/uL (0.21-1.20); NEUTROPHILS ABSOLUTE 1.52 10/3/uL (2.02-8.40); PLATELET COUNT 249 10/3/uL (150-400); RBC DISTRIBUTION WIDTH 14.3 % (12.0-16.0); RED CELL COUNT 3.75 10/6/uL (4.0-5.6); WHITE BLOOD CELLS 3.5 10/3/uL (4.5-10.5)
[2016-12-23 06:21] LABS: MANUAL DIFF NO %
[2016-12-23 06:28] LABS: INTERNATIONAL NORMAL RATI 1.2 UNITS (-); PARTIAL THROMBO TIME 29.1 SEC (22.5-37.2)
[2016-12-23 06:33] LABS: PROTIME (NOT ORD) 15.5 SEC (12.0-14.5)
[2016-12-23 06:40] LABS: A/G RATIO 0.9 (0.7-1.9); ALBUMIN 3.1 G/DL (3.5-5.0); ALKALINE PHOSPHATASE 62 U/L (45-117); CALCIUM, SERUM 8.9 MG/DL (8.5-10.4); CHLORIDE, SERUM 108 MMOL/L (96-112); CO2 (CARBON DIOXIDE) 27 MMOL/L (24-34); CREATININE 0.69 MG/DL (0.55-1.02); DIRECT BILIRUBIN 0.2 MG/DL (0.0-0.4); GFR AFRICAN AMERICAN 97 ML/MIN (>=60); GFR NON AFRICAN AMERICAN 83 ML/MIN (>=60); GLUCOSE, SERUM 190 MG/DL (60-99); INDIRECT BILIRUBIN(NOT ORDER) 0.2 MG/DL (0.1-0.9); PHOSPHORUS, SERUM 3.4 MG/DL (2.5-4.5); SGOT(AST) 11 U/L (5-40); SGPT(ALT) 18 U/L (5-65); SODIUM, SERUM 143 MMOL/L (135-148); TOTAL BILIRUBIN 0.4 MG/DL (0-1.2); TOTAL PROTEIN 6.5 G/DL (6.0-8.5)
[2016-12-23 06:42] LABS: BUN (BLOOD UREA NITROGEN) 11 MG/DL (6-23); GLOBULIN 3.4 G/DL (2.5-4.1)
== END 2016-12-23 17:13 | disposition home or self-care (01) ==
LOC: 7NO 22:00
PROVIDERS: Hospitalist; Internal Medicine; Internal Medicine Gastroenterology
PROC: 0DJD8ZZ Inspection of Lower Intestinal Tract, Via Natural or Artificial Opening Endoscopic (ICD-10-PCS; principal; 2016-12-23 12:00)
PROC: 0DJ08ZZ Inspection of Upper Intestinal Tract, Via Natural or Artificial Opening Endoscopic (ICD-10-PCS; 2016-12-23 12:00)
DX: K57.30 Diverticulosis of large intestine without perforation or abscess without bleeding (principal); K29.70 Gastritis, unspecified, without bleeding; I48.0 Paroxysmal atrial fibrillation; I34.0 Nonrheumatic mitral (valve) insufficiency; I36.1 Nonrheumatic tricuspid (valve) insufficiency; I11.0 Hypertensive heart disease with heart failure; I50.22 Chronic systolic (congestive) heart failure; E11.40 Type 2 diabetes mellitus with diabetic neuropathy, unspecified; E78.5 Hyperlipidemia, unspecified; G61.0 Guillain-Barre syndrome; Z90.89 Acquired absence of other organs; Z90.49 Acquired absence of other specified parts of digestive tract; Z88.5 Allergy status to narcotic agent; Z79.84 Long term (current) use of oral hypoglycemic drugs; Z79.899 Other long term (current) drug therapy; Z98.890 Other specified postprocedural states
CPT/HCPCS: 36415; 71010; 80048; 80053; 82248; 82962; 83735; 84100; 85014; 85018; 85025; 85610; 85730; 86850; 86900; 86901; 96374; A9270-GY; C9113; G0378

== ENCOUNTER 2016-12-27 22:56 | Observation (INO) | payer OTHER ==
--- NOTE | ~2016-12-27 | CN ---
Consultation Report [facility] [address] [place]. [address] NAME: JOAQUIN PFEIFFER : 38 STATUS : ADM Juan PAT#: [id number] AGE: 76 ADM/REG DATE : 12/28/16 MR#: [id number] REPORT SERV DATE: 12/28/16 DICTATED BY: ADRIEN INGRAM DATE: 12/28/16 REPORT STATUS : Draft TRANSCRIBED BY: MODL DATE: 12/28/16 CARDIOLOGY CONSULTATION DATE OF CONSULTATION: 12/28/2016 REASON FOR CONSULTATION: GI bleed with history of persistent atrial fibrillation, on chronic anticoagulation. HISTORY OF PRESENT ILLNESS: The patient is a 76-year-old female, recently evaluated for persistent atrial fibrillation. The patient is with history of frequent premature ventricular contractions. Recently diagnosed with new onset atrial fibrillation. The patient was chronically anticoagulated and scheduled for transesophageal echocardiogram with electrical cardioversion. On the day of the procedure, she underwent transesophageal echocardiography, which demonstrated left atrial thrombus. Cardioversion was discontinued. The patient was discharged home with plans for 1-month of anticoagulation prior to consideration for repeat CASSANDRA and cardioversion. The patient also has a history of chronic systolic congestive heart failure with a recently documented ejection fraction of 32%. 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 Also, history of hypertension, and diabetes mellitus. The patient presented for evaluation for bright red blood per rectum. Initial hemoglobin and hematocrit of 10.5 and 31.3 with mild decline to a 9.5 and 28.1 since admission. The patient recently underwent upper and lower endoscopy with previous complaints of "maroon-colored" stools. No obvious etiology for GI bleed identified at that time. GI has been reconsulted. The patient denies chest pain, palpitations, presyncope, or syncope. Denies dyspnea on exertion. The patient has no new cardiac complaints. PAST MEDICAL HISTORY: Per history of present illness above: 1. Chronic systolic congestive heart failure - likely tachycardia mediated. 2. Persistent atrial fibrillation. 3. Recently diagnosed left atrial appendage thrombus by transesophageal echo. 4. Moderate mitral and tricuspid regurgitation by recent echocardiogram. 5. History of GI bleed. 6. History of Guillain-Lynndyl. 7. Type 2 diabetes mellitus, non-insulin requiring. ALLERGIES: CODEINE AND TALWIN. SOCIAL HISTORY: No previous tobacco, alcohol, or illicit drug use. FAMILY HISTORY: Noncontributory. REVIEW OF SYSTEMS: Negative for all organ systems except per the history of present illness. Consultation Report [place] [place]. [address] NAME: JOAQUIN PFEIFFER : 38 STATUS : ADM Juan PAT#: [id number] AGE: 76 ADM/REG DATE : 12/28/16 MR#: [id number] REPORT SERV DATE: 12/28/16 DICTATED BY: ADRIEN INGRAM DATE: 12/28/16 REPORT STATUS : Draft TRANSCRIBED BY: JOSE DATE: 12/28/16 PHYSICAL EXAMINATION: VITAL SIGNS: Pulse 106 and irregular, blood pressure 123/93, weight 79 kg. GENERAL: Elderly female in no acute distress. HEENT: Normal. NECK: Supple, no JVD or bruit, normal carotid upstroke bilaterally, no thyromegaly. LUNGS: Clear to auscultation and percussion. No wheezes, rales or rhonchi. No use of accessory muscles. CARDIOLOGY: Irregularly regular rhythm, normal S1, S2, no thrill, no murmur, rubs or gallops, normal PMI. ABDOMEN: Bowel sounds positive, soft, nontender, and nondistended. No masses or aortic bruits. No hepatosplenomegaly or hepatojugular reflux. EXTREMITIES: No edema. Normal pulses. No clubbing or cyanosis. SKIN: Warm and dry, no significant rash. NEUROLOGIC: Alert and oriented x 3. Appropriate mood. TELEMETRY: Atrial fibrillation with controlled ventricular response. IMPRESSION: 1. Gastrointestinal bleed - recent investigation of same with endoscopy and colonoscopy with no active bleeding source identified. Hemodynamically stable. GI consultation is pending. 2. Atrial fibrillation - adequate rate control. Continue carvedilol. 3. Left atrial appendage thrombus demonstrated at transesophageal echo, 12/17/2016 - the patient is at high risk for thromboembolic event Off anticoagulation. Recommend continuation of anticoagulation unless life-threatening GI bleed. 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 4. Chronic systolic congestive heart failure - clinically euvolemic. No changes in medications at this time. Thank you for the opportunity to see the patient in consultation. MYCHAL/JOSE Tg Ingram M.D. / [id number] CC: Simon Orona M.D.
--- NOTE | ~2016-12-27 | DS ---
Discharge Summary [facility] [address] [place]. [address] NAME: JOAQUIN PFEIFFER : 36 STATUS : DIS Juan PAT#: [id number] AGE: 76 ADM/REG DATE : 12/28/16 MR#: [id number] REPORT SERV DATE: 01/01/17 DICTATED BY: YESSI MOORE DATE: 12/31/16 REPORT STATUS : Draft TRANSCRIBED BY: MODL DATE: 12/31/16 ADMISSION DATE: 12/28/2016 DISCHARGE DATE: 12/31/2016 DISCHARGE DIAGNOSES: 1. Gastrointestinal bleed with anemia. 2. There was no transfusion needed in this admission. 3. Atrial fibrillation, rate controlled. She had a bradycardia with increased dose of Cardizem. So, Cardizem CD was decreased 180 mg once a day. 4. Coagulopathy. Initial presentation of this gastrointestinal bleed with PT/INR was 4.0. She remained in supratherapeutic level, although she was taking Xarelto which should do not affect her protime. Had a long discussion with Dr. Ingram and knowing her GI bleed issue with negative scope and then we changed her oral anticoagulation to Coumadin use. The patient will be followed by Dr. Ingram and [facility]. 5. Coagulopathy, questionable drug interaction between increased dose of diltiazem and Xarelto use since their metabolites are set in same pathway. Due to the bradycardia, her Cardizem went down to 180 mg once a day and we changed her anticoagulation to Coumadin in light of a GI bleed. 6. Diabetes mellitus. A1c was 8.0. Her oral antidiabetic medication is increased to Glucophage 1000 mg twice a day and Amaryl was increased to 4 mg for each meal. 7. Left ventricular dysfunction on the echocardiogram on last admission was in two weeks. Her Lasix was increased to 40 mg once a day. CONSULTANTS: 1. Dr. Ingram. 2. Dr. Obregon. HISTORY OF PRESENT ILLNESS: This is a 76-year-old female patient who had a recent hospitalization with the same problem with GI bleed with anticoagulation therapy, came to the hospital again with the same problem. Seen by Dr. Ingram and Dr. Obregon. Dr. Obregon did not recommend any further GI workup at this point since she had a negative workup with endoscopy within two weeks ago. She did not require the transfusion. However, interesting finding her INR was noted to be supratherapeutic at 4.0 without a vitamin K antagonist treatment. After a long discussion with this issue, the patient's anticoagulation was changed to Coumadin and she was explained in lengthy manner regarding the medicine change and also, I got from pharmacist and also product/industry consultant. Therefore, we changed her oral anticoagulation to Coumadin and the patient will be followed by [facility]. She was found to have uncontrolled diabetes as well. Her oral antidiabetic medication has been increased and however, she was told that she might have to get insulin if her A1c is not coming down with this change and she has voiced understanding fully. Had a stable hospitalization. She did not require transfusion and we changed the anticoagulation to Coumadin and she will be discharged to home with followup with Dr. Discharge Summary [address] [address] NAME: JOAQUIN PFEIFFER : 38 STATUS : DIS Juan PAT#: [id number] AGE: 76 ADM/REG DATE : 12/28/16 MR#: [id number] REPORT SERV DATE: 01/01/17 DICTATED BY: YESSI MOORE DATE: 12/31/16 REPORT STATUS : Draft TRANSCRIBED BY: JOSE DATE: 12/31/16 Juan Jose. DISCHARGE MEDICATIONS: 1. Amitriptyline 25 mg once at night and Lipitor 40 mg once at night. 2. Coreg 12.5 mg twice a day. 3. Vitamin D 1000 units once a day. 4. Coenzyme Q10 100 mg once a day. 5. Cardizem CD 180 mg once a day. 6. Lasix 40 mg once at bedtime. 7. Neurontin 300 mg three times a day. 8. Amaryl 4 mg for each meal. 9. Glucophage 1000 mg twice a day. 10.Prinivil 5 mg once at bedtime. 11.Mag-Ox 400 mg once a day. 12.Osteo Bi-Flex cap. 13.Xarelto was discontinued. 14.Potassium was discontinued. 15.Aleve was discontinued. 16.Coumadin was given from Dr. Ingram 5 mg once a day, will be followed by [facility]. TIME SPENT: More than 30 minutes. EKL/MODL Yessi Moore M.D. / [id number] CC: Simon Orona M.D.
--- NOTE | ~2016-12-27 | CN ---
Consultation Report [facility] [place]. [address] NAME: JOAQUIN PFEIFFER : 38 STATUS : ADM Juan PAT#: [id number] AGE: 76 ADM/REG DATE : 12/28/16 MR#: [id number] REPORT SERV DATE: 12/28/16 DICTATED BY: GINA DELEON DATE: 12/28/16 REPORT STATUS : Draft TRANSCRIBED BY: MODL DATE: 12/28/16 CONSULTATION REPORT DATE OF CONSULTATION: 12/28/2016 REASON FOR CONSULT: "I am asked to see this lady with GI bleeding." HISTORY OF PRESENT ILLNESS: This 76-year-old lady is known to me. She underwent panendoscopy and colonoscopy about two weeks ago for GI bleeding. Upper endoscopy was normal, colonoscopy showed several diverticula. She has been maintained on anticoagulants and had a rather vigorous amount of bright red blood per rectum recently. She denies upper abdominal pain, nausea, or vomiting. She denies lower abdominal pain, cramps, or diarrhea. REVIEW OF SYSTEMS: General review of systems, otherwise, unremarkable. She is known to have a left atrial thrombus and will require anticoagulation on a fairly regular basis. PHYSICAL EXAMINATION: CHEST: Clear. CARDIAC: Regular rhythm. ABDOMEN: Soft and nontender. Bowel sounds are normal. No palpable mass. DIAGNOSTIC DATA: CT of the abdomen is normal. LABORATORY DATA: Lab work shows a hemoglobin of 10.5, which is decreased to 9.5. BUN and creatinine are normal. IMPRESSION: Lower gastrointestinal bleeding, most likely diverticular. Anticoagulation probably exacerbates this. PLAN: 1. I do not think repeat endoscopy is necessary. 2. We will begin IV Sandostatin, which can be continued as an outpatient subcutaneously. Thank you for allowing me to see this lady. CLEMENTINA/JOSE Consultation Report [facility] [place]. [address] NAME: JOAQUIN PFEIFFER : 38 STATUS : ADM Juan PAT#: [id number] AGE: 76 ADM/REG DATE : 12/28/16 MR#: [id number] REPORT SERV DATE: 12/28/16 DICTATED BY: GINA DELEON DATE: 12/28/16 REPORT STATUS : Draft TRANSCRIBED BY: MODL DATE: 12/28/16 Gina Deleon M.D. / [id number] CC: Simon Orona M.D.
--- NOTE | ~2016-12-27 | HP ---
History And Physical [id number] [place]. [address] NAME: JOAQUIN PFEIFFER : 36 STATUS : ADM Juan PAT#: [id number] AGE: 76 ADM/REG DATE : 12/28/16 MR#: [id number] REPORT SERV DATE: 12/28/16 DICTATED BY: RADHA SELF DATE: 12/28/16 REPORT STATUS : Draft TRANSCRIBED BY: MODL DATE: 12/28/16 DATE OF ADMISSION: 12/28/2016 CHIEF COMPLAINT: A 76-year-old female, presenting with persistent GI bleed. HISTORY OF PRESENT ILLNESS: The patient's history was obtained through careful interview with the patient and coupled with review of [facility] medical records. Unfortunately, the patient has had a complicated December 2016. She had developed atrial fibrillation, new onset, on 12/17/2016, was going to present for a cardioversion, was found to have an atrial appendage thrombus on scan and therefore was put on blood thinner, and cardioversion was avoided because of this. Unfortunately, after being placed on blood thinner, patient then developed GI bleed. She was evaluated here at the hospital by Dr. Obregon with upper endoscopy and colonoscopy that were apparently "negative" or nondiagnostic for the severity of the patient's bleeding. She was discharged finally on 12/23/2016 and seemed to do well for a few days but then on 12/25/2016 began to notice blood passing in her stool once again. On the night of admission, she had watery diarrhea that then became just pure blood passing and she became so anxious that she decided to come into the hospital. She has been feeling "spacey" and dizzy, weak, anxious, but no near syncope. She has had palpitations. No chest pain. No abdominal pain. No shortness of breath. No cough. She admits that her diabetes is poorly controlled, mostly with blood sugars over 200, with her maximum blood sugar a few days ago of 448. REVIEW OF SYSTEMS: Otherwise, a 14-point review of systems was obtained and was negative. PAST MEDICAL HISTORY: 1. Atrial fibrillation, seen by Dr. Ingram. 2. Diabetes. 3. Diverticular bleed. 4. Gastritis, seen by Dr. Obregon. 5. 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 7. Hypertension. 8. Elevated cholesterol. 9. Systolic congestive heart failure. Ejection fraction 35% to 40%. 10.Moderate mitral regurgitation. History And Physical [place] [address] [place]. [address] NAME: JOAQUIN PFEIFFER : 36 STATUS : ADM Juan PAT#: [id number] AGE: 76 ADM/REG DATE : 12/28/16 MR#: [id number] REPORT SERV DATE: 12/28/16 DICTATED BY: RADHA SELF DATE: 12/28/16 REPORT STATUS : Draft TRANSCRIBED BY: JOSE DATE: 12/28/16 PAST SURGICAL HISTORY: 1. Anal fissure repair. 2. Hysterectomy. 3. Appendectomy. ALLERGIES: CODEINE AND TALWIN. SOCIAL HISTORY: No tobacco abuse. No alcohol abuse. She is . Has two children, seven grandchildren, two great-grandchildren. Ambulates with a walker. Lives in [place], [place]. FAMILY HISTORY: No cardiac disease. CURRENT MEDICATIONS: Include Elavil 25 mg p.o. at bedtime, Lipitor 40 mg p.o. daily, Coreg 12.5 mg p.o. b.i.d., vitamin D, coenzyme Q10, diltiazem extended release 180 mg p.o. b.i.d., Lasix 20 mg p.o. daily, Neurontin 300 mg p.o. t.i.d., glimepiride 2 mg p.o. t.i.d., Osteo Bi Flex, lisinopril 5 mg p.o. daily, magnesium, metformin 850 mg p.o. t.i.d., Aleve 220 mg p.o. b.i.d., fish oil, potassium 20 mEq p.o. daily, and Xarelto 20 mg p.o. daily. PHYSICAL EXAMINATION: VITAL SIGNS: Temperature 97.8, pulse 114, blood pressure 138/65, respiratory rate 20, and O2 saturation 99% on room air. GENERAL: A pleasant, cooperative female, in no evidence of acute distress. HEENT: Pupils equal, round, and reactive to light. Mild conjunctival pallor. No scleral icterus. Nares are patent. Oropharynx is clear of obstruction. Moist mucous membranes. NECK: Trachea midline. No thyromegaly. LYMPH: No cervical lymphadenopathy. No supraclavicular lymphadenopathy. RESPIRATORY: Clear to auscultation at bases. No wheezes, rales, or rhonchi. Normal respiratory effort. CARDIOVASCULAR: Tachycardic, irregularly irregular rhythm. No murmurs, rubs, or gallops. No extremity edema is appreciated at this time. ABDOMEN: Soft, nontender, nondistended. Normal bowel sounds auscultated throughout. No hepatosplenomegaly. DERMATOLOGICAL: Warm and dry extremities. No pallor. No cyanosis. PSYCHIATRIC: Normal affect. Good mood. Alert and oriented x3. LABORATORY DATA: White blood cell count 6.1, hemoglobin 10, hematocrit 31, and platelets 280. Sodium 139, potassium 4.4, chloride 105, bicarb 27, BUN 29, creatinine 1.09, glucose 170. Urinalysis negative for infection. INR 4.0. STUDIES: 1. EKG by my own evaluation shows rapid atrial fibrillation. 2. CT scan of the abdomen shows nonspecific enterocolitis changes. ASSESSMENT AND PLAN: 1. Gastrointestinal bleed with recent negative upper endoscopy and negative colonoscopy. History And Physical [address] [address] NAME: JOAQUIN PFEIFFER : 36 STATUS : ADM Juan PAT#: [id number] AGE: 76 ADM/REG DATE : 12/28/16 MR#: [id number] REPORT SERV DATE: 12/28/16 DICTATED BY: RADHA SELF DATE: 12/28/16 REPORT STATUS : Draft TRANSCRIBED BY: JOSE DATE: 12/28/16 We will consider capsule study (?). Consult Dr. Obregon, caving guide. 2. Atrial fibrillation, just recently diagnosed in last few weeks, started on Xarelto for atrial appendage thrombus on 12/17/2016. Recheck an echocardiogram. Consult Dr. Ingram, manager inspection. Check telemetry. 3. Anemia. Follow hemoglobin and hematocrit. 4. Diabetes. Check hemoglobin A1c. Place on sliding scale insulin. RADHA/JOSE Radha Self M.D. / [id number] CC: Simon Orona M.D. Matthew Bagamery, M.D. C. Samuel Ledford, M.D.
[2016-12-27 23:27] LABS: BASOPHILS 0.5 %; BASOPHILS ABSOLUTE 0.03 10/3/uL (0.0-0.16); EOSINOPHILS 1.5 %; EOSINOPHILS ABSOLUTE 0.09 10/3/uL (0.0-0.53); HEMATOCRIT 31.3 % (36.0-48.0); HEMOGLOBIN 10.5 g/dL (12.0-16.0); IMMATURE GRANULOCYTES 0.3 %; IMMATURE GRANULOCYTES ABSOLUTE 0.02 10/3/uL (0.0-0.11); LYMPHOCYTES 38.9 %; LYMPHOCYTES ABSOLUTE 2.36 10/3/uL (0.67-4.30); MEAN CORPUS HGB CONC 33.5 g/dL (32.0-36.0); MEAN CORPUSCULAR HEMOGLOB 30.8 pg (26.0-34.0); MEAN CORPUSCULAR VOLUME 91.8 fL (80-100); MEAN PLATELET VOLUME 9.1 fL (9.2-13.0); MONOCYTES 11.9 %; MONOCYTES ABSOLUTE 0.72 10/3/uL (0.21-1.20); NEUTROPHILS 46.9 %; NEUTROPHILS ABSOLUTE 2.84 10/3/uL (2.02-8.40); PLATELET COUNT 280 10/3/uL (150-400); RBC DISTRIBUTION WIDTH 14.4 % (12.0-16.0); RED CELL COUNT 3.41 10/6/uL (4.0-5.6)
[2016-12-27 23:28] LABS: MANUAL DIFF NO %; WHITE BLOOD CELLS 6.1 10/3/uL (4.5-10.5)
[2016-12-27 23:32] LABS: ASCORBIC ACID (UR NOT ORDER) NEG (NEG); BILIRUBIN, URINE NEGATIVE (NEG); ER URINALYSIS TAT 0 Hrs 00 Mins; KETONE, URINE NEGATIVE (NEG); LEUKOCYTE ESTERASE(NOT OR NEG (NEG); NITRITE (URINE) NEG (NEG); WBC (NOT ORDERED) (RFLEX) < 1 (0-5)
[2016-12-27 23:34] LABS: PARTIAL THROMBO TIME 45.9 SEC (22.5-37.2)
[2016-12-27 23:37] LABS: PROTIME (NOT ORD) 38.9 SEC (12.0-14.5)
[2016-12-27 23:42] LABS: ALBUMIN 3.6 G/DL (3.5-5.0); ALKALINE PHOSPHATASE 71 U/L (45-117); CALCIUM, SERUM 9.2 MG/DL (8.5-10.4); CHLORIDE, SERUM 105 MMOL/L (96-112); CO2 (CARBON DIOXIDE) 27 MMOL/L (24-34); CREATININE 1.09 MG/DL (0.55-1.02); GFR AFRICAN AMERICAN 56 ML/MIN (>=60); GFR NON AFRICAN AMERICAN 49 ML/MIN (>=60); GLOBULIN 3.5 G/DL (2.5-4.1); GLUCOSE, SERUM 170 MG/DL (60-99); POTASSIUM, SERUM 4.4 MMOL/L (3.5-5.3); SGOT(AST) 15 U/L (5-40); SGPT(ALT) 24 U/L (5-65); SODIUM, SERUM 139 MMOL/L (135-148); TOTAL BILIRUBIN 0.3 MG/DL (0-1.2); TOTAL PROTEIN 7.1 G/DL (6.0-8.5)
[2016-12-27 23:43] LABS: BUN (BLOOD UREA NITROGEN) 29 MG/DL (6-23)
[2016-12-27] MEDS ORDERED: ALEVE220 MG PO (23:55)
[2016-12-28 06:57] LABS: INTERNATIONAL NORMAL RATI 2.9 UNITS (-); PARTIAL THROMBO TIME 36.4 SEC (22.5-37.2)
[2016-12-28 06:58] LABS: PROTIME (NOT ORD) 29.9 SEC (12.0-14.5)
[2016-12-28 07:01] LABS: BASOPHILS 0.6 %; BASOPHILS ABSOLUTE 0.03 10/3/uL (0.0-0.16); EOSINOPHILS 1.7 %; EOSINOPHILS ABSOLUTE 0.09 10/3/uL (0.0-0.53); HEMATOCRIT 28.1 % (36.0-48.0); HEMOGLOBIN 9.5 g/dL (12.0-16.0); IMMATURE GRANULOCYTES 0.4 %; IMMATURE GRANULOCYTES ABSOLUTE 0.02 10/3/uL (0.0-0.11); LYMPHOCYTES 48.1 %; LYMPHOCYTES ABSOLUTE 2.51 10/3/uL (0.67-4.30); MANUAL DIFF NO %; MEAN CORPUS HGB CONC 33.8 g/dL (32.0-36.0); MEAN CORPUSCULAR HEMOGLOB 30.4 pg (26.0-34.0); MEAN CORPUSCULAR VOLUME 90.1 fL (80-100); MONOCYTES 8.2 %; MONOCYTES ABSOLUTE 0.43 10/3/uL (0.21-1.20); NEUTROPHILS ABSOLUTE 2.14 10/3/uL (2.02-8.40); PLATELET COUNT 259 10/3/uL (150-400); RBC DISTRIBUTION WIDTH 14.4 % (12.0-16.0); RED CELL COUNT 3.12 10/6/uL (4.0-5.6); WHITE BLOOD CELLS 5.2 10/3/uL (4.5-10.5)
[2016-12-28 07:12] LABS: ALBUMIN 3.2 G/DL (3.5-5.0); ALKALINE PHOSPHATASE 62 U/L (45-117); BUN (BLOOD UREA NITROGEN) 25 MG/DL (6-23); CALCIUM, SERUM 8.6 MG/DL (8.5-10.4); CHLORIDE, SERUM 108 MMOL/L (96-112); CO2 (CARBON DIOXIDE) 24 MMOL/L (24-34); CREATININE 0.94 MG/DL (0.55-1.02); GFR AFRICAN AMERICAN 67 ML/MIN (>=60); GFR NON AFRICAN AMERICAN 58 ML/MIN (>=60); GLOBULIN 3.1 G/DL (2.5-4.1); GLUCOSE, SERUM 166 MG/DL (60-99); POTASSIUM, SERUM 4.8 MMOL/L (3.5-5.3); SGOT(AST) 11 U/L (5-40); SGPT(ALT) 21 U/L (5-65); SODIUM, SERUM 139 MMOL/L (135-148); TOTAL BILIRUBIN 0.3 MG/DL (0-1.2); TOTAL PROTEIN 6.3 G/DL (6.0-8.5)
[2016-12-28 13:02] LABS: HEMATOCRIT 27.3 % (36.0-48.0); HEMOGLOBIN 9.2 g/dL (12.0-16.0)
[2016-12-28 19:30] LABS: HEMATOCRIT 27.3 % (36.0-48.0); HEMOGLOBIN 9.2 g/dL (12.0-16.0)
[2016-12-29 01:13] LABS: HEMATOCRIT 26.2 % (36.0-48.0); HEMOGLOBIN 8.7 g/dL (12.0-16.0)
[2016-12-29 05:12] LABS: PARTIAL THROMBO TIME 35.1 SEC (22.5-37.2)
[2016-12-29 05:13] LABS: INTERNATIONAL NORMAL RATI 3.2 UNITS (-); PROTIME (NOT ORD) 32.6 SEC (12.0-14.5)
[2016-12-29 05:26] LABS: BUN (BLOOD UREA NITROGEN) 24 MG/DL (6-23); CHLORIDE, SERUM 107 MMOL/L (96-112); CO2 (CARBON DIOXIDE) 24 MMOL/L (24-34); CREATININE 0.93 MG/DL (0.55-1.02); GFR AFRICAN AMERICAN 68 ML/MIN (>=60); GFR NON AFRICAN AMERICAN 59 ML/MIN (>=60); GLUCOSE, SERUM 171 MG/DL (60-99); POTASSIUM, SERUM 4.6 MMOL/L (3.5-5.3); SODIUM, SERUM 140 MMOL/L (135-148)
[2016-12-29 07:34] LABS: HEMOGLOBIN 9.2 g/dL (12.0-16.0)
[2016-12-29 14:03] LABS: HEMATOCRIT 28.4 % (36.0-48.0); HEMOGLOBIN 9.3 g/dL (12.0-16.0)
[2016-12-30 05:38] LABS: BASOPHILS 0.6 %; BASOPHILS ABSOLUTE 0.03 10/3/uL (0.0-0.16); EOSINOPHILS 2.4 %; EOSINOPHILS ABSOLUTE 0.12 10/3/uL (0.0-0.53); HEMOGLOBIN 8.4 g/dL (12.0-16.0); IMMATURE GRANULOCYTES 0.4 %; IMMATURE GRANULOCYTES ABSOLUTE 0.02 10/3/uL (0.0-0.11); LYMPHOCYTES 36.7 %; LYMPHOCYTES ABSOLUTE 1.86 10/3/uL (0.67-4.30); MEAN CORPUS HGB CONC 33.1 g/dL (32.0-36.0); MEAN CORPUSCULAR HEMOGLOB 30.5 pg (26.0-34.0); MEAN CORPUSCULAR VOLUME 92.4 fL (80-100); MEAN PLATELET VOLUME 9.5 fL (9.2-13.0); MONOCYTES 8.3 %; MONOCYTES ABSOLUTE 0.42 10/3/uL (0.21-1.20); NEUTROPHILS 51.6 %; NEUTROPHILS ABSOLUTE 2.62 10/3/uL (2.02-8.40); PLATELET COUNT 257 10/3/uL (150-400); RBC DISTRIBUTION WIDTH 14.3 % (12.0-16.0); RED CELL COUNT 2.75 10/6/uL (4.0-5.6); WHITE BLOOD CELLS 5.1 10/3/uL (4.5-10.5)
[2016-12-30 05:40] LABS: HEMATOCRIT 25.4 % (36.0-48.0); MANUAL DIFF NO %
[2016-12-30 05:45] LABS: INTERNATIONAL NORMAL RATI 3.7 UNITS (-); PROTIME (NOT ORD) 36.1 SEC (12.0-14.5)
[2016-12-30 05:58] LABS: ALKALINE PHOSPHATASE 58 U/L (45-117); CALCIUM, SERUM 8.7 MG/DL (8.5-10.4); CHLORIDE, SERUM 106 MMOL/L (96-112); CO2 (CARBON DIOXIDE) 23 MMOL/L (24-34); CREATININE 1.42 MG/DL (0.55-1.02); GFR AFRICAN AMERICAN 41 ML/MIN (>=60); GFR NON AFRICAN AMERICAN 35 ML/MIN (>=60); SGOT(AST) 20 U/L (5-40); SGPT(ALT) 19 U/L (5-65); SODIUM, SERUM 138 MMOL/L (135-148); TOTAL BILIRUBIN 0.4 MG/DL (0-1.2)
[2016-12-30 06:00] LABS: BUN (BLOOD UREA NITROGEN) 34 MG/DL (6-23); GLUCOSE, SERUM 238 MG/DL (60-99)
[2016-12-30 14:59] LABS: PROTIME (NOT ORD) 26.7 SEC (12.0-14.5)
[2016-12-30 15:01] LABS: INTERNATIONAL NORMAL RATI 2.5 UNITS (-)
[2016-12-30 15:02] LABS: PT MIX (1:1 DIL PAT/NOR)NOT OR 19.4 SEC (12.0-14.5)
[2016-12-31 04:13] LABS: HEMATOCRIT 26.7 % (36.0-48.0); HEMOGLOBIN 8.7 g/dL (12.0-16.0); MANUAL DIFF YES %; MEAN CORPUS HGB CONC 32.6 g/dL (32.0-36.0); MEAN CORPUSCULAR HEMOGLOB 30.1 pg (26.0-34.0); MEAN CORPUSCULAR VOLUME 92.4 fL (80-100); MEAN PLATELET VOLUME 9.5 fL (9.2-13.0); PLATELET COUNT 286 10/3/uL (150-400); RBC DISTRIBUTION WIDTH 14.2 % (12.0-16.0); RED CELL COUNT 2.89 10/6/uL (4.0-5.6); WHITE BLOOD CELLS 6.3 10/3/uL (4.5-10.5)
[2016-12-31 04:23] LABS: INTERNATIONAL NORMAL RATI 1.9 UNITS (-); PARTIAL THROMBO TIME 29.5 SEC (22.5-37.2)
[2016-12-31 04:27] LABS: PROTIME (NOT ORD) 21.7 SEC (12.0-14.5)
[2016-12-31 04:34] LABS: ALBUMIN 3.2 G/DL (3.5-5.0); ALKALINE PHOSPHATASE 60 U/L (45-117); BUN (BLOOD UREA NITROGEN) 34 MG/DL (6-23); CALCIUM, SERUM 8.8 MG/DL (8.5-10.4); CHLORIDE, SERUM 105 MMOL/L (96-112); CO2 (CARBON DIOXIDE) 22 MMOL/L (24-34); CREATININE 1.09 MG/DL (0.55-1.02); GFR AFRICAN AMERICAN 56 ML/MIN (>=60); GFR NON AFRICAN AMERICAN 49 ML/MIN (>=60); GLOBULIN 3.2 G/DL (2.5-4.1); GLUCOSE, SERUM 232 MG/DL (60-99); POTASSIUM, SERUM 4.5 MMOL/L (3.5-5.3); SGOT(AST) 13 U/L (5-40); SGPT(ALT) 18 U/L (5-65); SODIUM, SERUM 137 MMOL/L (135-148); TOTAL BILIRUBIN 0.3 MG/DL (0-1.2); TOTAL PROTEIN 6.4 G/DL (6.0-8.5)
[2016-12-31 05:19] LABS: EOSINOPHILS 1 %; EOSINOPHILS ABSOLUTE (CALC) 0.06 10/3/uL (0.0-0.53); LYMPHOCYTES 19 %; MONOCYTES 2 %; MONOCYTES ABSOLUTE (CALC) 0.13 10/3/uL (0.21-1.20); NEUTROPHILS ABSOLUTE (CALC) 4.91 10/3/uL (2.02-8.40); SEGMENTED NEUTROPHIL (0) 78 %; TOTAL NUCLEATED CELLS 100
[2016-12-31 05:20] LABS: PLATELET ESTIMATE ADQ (ADEQUATE); RBC MORPHOLOGY NORM (NORMAL)
[2016-12-31] MEDS ORDERED: L40 PO (09:58)
[2016-12-31] MEDS ORDERED: GLUCOPHAGE1000 MG PO (10:01)
[2016-12-31] MEDS ORDERED: JANTOVEN5 MG PO (10:02)
== END 2016-12-31 10:29 | disposition home or self-care (01) ==
LOC: ER 22:56 → 5NO 12-28 01:44
PROVIDERS: Hospitalist; Internal Medicine; Nurse Practitioner
DX: K92.2 Gastrointestinal hemorrhage, unspecified (principal); I48.91 Unspecified atrial fibrillation; E11.9 Type 2 diabetes mellitus without complications; I11.0 Hypertensive heart disease with heart failure; I50.20 Unspecified systolic (congestive) heart failure; G61.0 Guillain-Barre syndrome; E78.00 Pure hypercholesterolemia, unspecified; I34.0 Nonrheumatic mitral (valve) insufficiency; I07.1 Rheumatic tricuspid insufficiency; I48.1 Persistent atrial fibrillation; D64.9 Anemia, unspecified; Z90.49 Acquired absence of other specified parts of digestive tract; Z90.710 Acquired absence of both cervix and uterus; Z98.890 Other specified postprocedural states; Z88.8 Allergy status to other drugs, medicaments and biological substances; Z88.5 Allergy status to narcotic agent; Z79.84 Long term (current) use of oral hypoglycemic drugs; Z79.899 Other long term (current) drug therapy
CPT/HCPCS: 36415; 71020; 74176; 80048; 80053; 81001; 82962; 83036; 83735; 84443; 85014; 85018; 85025; 85610; 85611; 85611-59; 85730; 86850; 86900; 86901; 87045; 87046; 87046-59; 87328; 87329; 87493; 87493-59; 87899; 87899-59; 89055; 93005; 96374; 96376; 99285; A9270-GY; C9113; G0378; J3475